=== PATIENT | male | born 1995 | race Caucasian/White ===

== ENCOUNTER 2017-07-28 09:30 | Emergency (ER) | payer OTHER ==
[~2017-07-28] VITALS: Ht 175.3 cm; Wt 119.7 kg
[2017-07-28 10:44] LABS: microscopic required? YES; urine erythrocyte 2+ (NEGATIVE)
[2017-07-28 11:50] LABS: CALCIUM 8.6 mg/dL (8.5-10.1); CHLORIDE SERUM 105 mmol/L (98-107); CREATININE SERUM 0.8 mg/dL (0.7-1.3); GFR1 > 60 mL/min; GLUCOSE SERUM 83 mg/dL (74-106); POTASSIUM SERUM 3.6 mmol/L (3.5-5.1); SODIUM SERUM 140 mmol/L (136-145)
[2017-07-28 11:53] LABS: ALKALINE PHOSPHATASE 40 U/L (46-116); ALT/SGPT 60 U/L (16-63); AMYLASE 36 U/L (25-115); AST/SGOT 24 U/L (15-37); BILIRUBIN TOTAL 1.2 mg/dL (0.20-1.00); LIPASE 70 IU/L (73-393); TOTAL PROTEIN, SERUM 7.7 g/dL (6.4-8.2)
[2017-07-28 12:04] LABS: BASOPHIL % 0.5 % (0-2); PLATELET COUNT 235 x10^3mcL (130-400); RED CELL DISTRIBUTION WIDTH 12.3 % (11.5-14.5)
[2017-07-28 13:00] VITALS: BP 124/63
== END 2017-07-28 13:00 | disposition home or self-care (01) ==
LOC: ED 09:30
PROVIDERS: Specialist
DX: N23 Unspecified renal colic (principal); Z86.79 Personal history of other diseases of the circulatory system
CPT/HCPCS: 83880; J1885; J2405; J3010

== ENCOUNTER 2018-03-06 09:53 | Emergency (ER) | payer SELFPAY ==
[~2018-03-06] VITALS: Ht 180.3 cm; Wt 114.3 kg
[2018-03-06 10:19] VITALS: Ht 180.3 cm; Wt 114.3 kg
[2018-03-06 11:11] LABS: BASOPHIL % 0.3 % (0-2); PLATELET COUNT 262 x10^3mcL (130-400); RED CELL DISTRIBUTION WIDTH 12.9 % (11.5-14.5)
[2018-03-06 11:19] LABS: CALCIUM 9.3 mg/dL (8.5-10.1); CARBON DIOXIDE 29.1 mmol/L (21-32); CHLORIDE SERUM 103 mmol/L (98-107); CREATININE SERUM 0.9 mg/dL (0.7-1.3); GFR1 > 60 mL/min; GLUCOSE SERUM 102 mg/dL (74-106); POTASSIUM SERUM 3.9 mmol/L (3.5-5.1); SODIUM SERUM 139 mmol/L (136-145)
[2018-03-06 11:24] LABS: ALBUMIN 4.3 g/dL (3.4-5.0); ALKALINE PHOSPHATASE 55 U/L (46-116); ALT/SGPT 62 U/L (16-63); AST/SGOT 25 U/L (15-37); BILIRUBIN TOTAL 0.78 mg/dL (0.20-1.00); TOTAL PROTEIN, SERUM 8.2 g/dL (6.4-8.2)
[2018-03-06 11:29] LABS: UA SPECIFIC GRAVITY 1.025 (1.005-1.035); microscopic required? YES; urine erythrocyte 3+ (NEGATIVE)
[2018-03-06 12:09] VITALS: BP 125/75
== END 2018-03-06 12:09 | disposition home or self-care (01) ==
LOC: ED 09:53
PROVIDERS: Specialist
DX: N20.0 Calculus of kidney (principal)
CPT/HCPCS: 36415; J1885; J3010; Q0162